=== PATIENT | female | born 1985 | race African-American/Black ===

== ENCOUNTER 2017-02-20 00:29 | Emergency (ER) | payer MEDICAID ==
[~2017-02-20] VITALS: Ht 160 cm; Wt 81.1 kg
[~2017-02-20 00:29] MED LIST: MIGRAINE MEDICATION
[2017-02-20 00:31] VITALS: BP 107/73
[2017-02-20] MEDS ORDERED: DIPHENHYDRAMINE 25 MG CAPSULE ONE (00:58)
[2017-02-20] MEDS ORDERED: PROPARACAINE OPHTH 0.5%, 15ML ONE (00:59)
[2017-02-20] MEDS ORDERED: FLUORESCEIN OPHTHALMIC 1 MG STRIP ONE (00:59)
[2017-02-20] MEDS ORDERED: FLUORESCEIN OPHTHALMIC 1 MG STRIP RIGHTEYE ONE (01:00)
[2017-02-20] MEDS ORDERED: DIPHENHYDRAMINE 25 MG CAPSULE PO ONE (01:00)
[2017-02-20] MEDS ORDERED: PROPARACAINE OPHTH 0.5%, 15ML RIGHTEYE ONE (01:00)
== END 2017-02-20 02:02 | disposition home or self-care (01) ==
LOC: ED 01:43
DX: H10.11 Acute atopic conjunctivitis, right eye (principal)
CPT/HCPCS: 99283; Q0163

== ENCOUNTER 2017-05-03 16:28 | Emergency (ER) | payer MEDICAID ==
[~2017-05-03] VITALS: Ht 160 cm; Wt 78.7 kg
[2017-05-03] MEDS ORDERED: AZITHROMYCIN 500 MG TABLET ONE (17:00)
[2017-05-03] MEDS ORDERED: CEFTRIAXONE 250 MG ONE (17:00)
[2017-05-03] MEDS ORDERED: CEFTRIAXONE 250 MG IM ONE (17:00)
[2017-05-03] MEDS ORDERED: AZITHROMYCIN 500 MG TABLET PO ONE (17:00)
[2017-05-03 18:08] VITALS: BP 120/74
== END 2017-05-03 18:38 | disposition home or self-care (01) ==
LOC: ED 17:08
DX: R30.0 Dysuria (principal); Z90.710 Acquired absence of both cervix and uterus
CPT/HCPCS: 81003; 87210; 87491; 87591; 87808; 96372; 99284; J0696

== ENCOUNTER 2018-12-16 22:31 | Emergency (ER) | payer MEDICAID ==
[~2018-12-16] VITALS: Ht 157.5 cm; Wt 70.4 kg
[2018-12-16] MEDS ORDERED: KETOROLAC 30 MG/1 ML IM ONE (23:30)
[2018-12-16] MEDS ORDERED: ONDANSETRON ODT 4 MG PO ONE (23:30)
[2018-12-16] MEDS ORDERED: ONDANSETRON ODT 4 MG ONE (23:34)
[2018-12-16] MEDS ORDERED: diabetic med (23:38)
[2018-12-16] MEDS ORDERED: cholesterol med (23:38)
[2018-12-16] MEDS ORDERED: METF500T17 PO (23:38)
--- NOTE | 2018-12-16 23:39 | NUR ---
PT HAS HAD N/V SINCE YESTERDAY. PT HAVING HEADACHE TOO. PT STATES SHE'S A DIABETIC AND FSBS AT HOME TONIGHT WAS 130. monitors applied, siderails up x2, call light within reach. pt medicated per sep, urine sample taken to lab
[2018-12-16 23:48] LABS: BASOPHILS # (AUTO) 0.06 x10^3/uL (0-0.1); BASOPHILS % (AUTO) 0 % (0-1); EOSINOPHILS # (AUTO) 0.07 x10^3/uL (0-0.4); EOSINOPHILS % (AUTO) 1 % (1-7); LYMPHOCYTES % (AUTO) 22 % (22-44); MD NO; MEAN CORPUSCULAR HEMOGLOBIN 32.3 pg (27.0-34.8); MEAN CORPUSCULAR HGB CONC 34.2 g/dL (32.4-35.8); MEAN CORPUSCULAR VOLUME 94.6 fL (80-100); MEAN PLATELET VOLUME 8.3 fL (7.4-10.4); MONOCYTES # (AUTO) 0.91 x10^3/uL (0.2-0.8); MONOCYTES % (AUTO) 7 % (2-9); NEUTROPHILS % (AUTO) 71 % (42-75); PLATELET COUNT 383 x10^3/uL (130-400); RED BLOOD COUNT 5.01 x10^6/uL (3.82-5.3); RED CELL DISTRIBUTION WIDTH 11.8 % (9.6-15.2)
[2018-12-16 23:58] LABS: ALANINE AMINOTRANSFERASE 22 U/L (12-78); ALBUMIN 4.3 g/dL (3.4-5.0); ANION GAP 9 mmol/L (5-15); CALCIUM 9.3 mg/dL (8.5-10.1); CHLORIDE 106 mmol/L (98-107); CREATININE 0.82 mg/dL (0.55-1.02)
[2018-12-17] LABS: MICROSCOPIC INDICATED
[2018-12-17] LABS: ALKALINE PHOSPHATASE 72 U/L (45-117); BILIRUBIN,TOTAL 0.8 mg/dL (0.2-1.0); TOTAL PROTEIN 8.4 g/dL (6.4-8.2)
[2018-12-17 00:10] LABS: CULTURE INDICATED? YES
[2018-12-17] MEDS ORDERED: FENTANYL PF 100 MCG/2ML IV ONE (00:30)
--- NOTE | 2018-12-17 01:02 | NUR ---
PT RESTING ON GURNEY, PROVIDED PT WITH MORE WARM BLANKETS, MONITORS IN PLACE, CALL LIGHT WITHIN REACH, DENIES FURTHER NEEDS
--- NOTE | 2018-12-17 01:04 | NUR ---
PT TO CT
[2018-12-17] MEDS ORDERED: OMNIPAQUE 350 MG/ML, 100ML BOTTLE ONE (01:13)
[2018-12-17 02:24] VITALS: BP 110/55
== END 2018-12-17 02:29 | disposition home or self-care (01) ==
LOC: ED 23:16
DX: K51.90 Ulcerative colitis, unspecified, without complications (principal); R10.32 Left lower quadrant pain; G43.909 Migraine, unspecified, not intractable, without status migrainosus; E11.9 Type 2 diabetes mellitus without complications; Z90.710 Acquired absence of both cervix and uterus
CPT/HCPCS: 36415; 74177; 80053; 81001; 83690; 85025; 87086; 99284; Q0162; Q9967

== ENCOUNTER 2019-01-16 01:48 | Emergency (ER) | payer MEDICAID, MEDICARE ==
[~2019-01-16] VITALS: Ht 160 cm; Wt 71.4 kg
[~2019-01-16 01:48] MED LIST changes: +METF500T17 PO; +cholesterol med; +diabetic med
[2019-01-16 01:53] VITALS: BP 99/60
[2019-01-16] MEDS ORDERED: AZITHROMYCIN 250 MG TABLET ONE (02:13)
[2019-01-16] MEDS ORDERED: LIDOCAINE-MPF 1%, 2ML ONE (02:13)
[2019-01-16] MEDS ORDERED: CEFTRIAXONE 250 MG ONE (02:13)
[2019-01-16] MEDS ORDERED: AZITHROMYCIN 500 MG TABLET PO ONE (02:30)
[2019-01-16] MEDS ORDERED: CEFTRIAXONE 250 MG IM ONE (02:30)
== END 2019-01-16 02:50 | disposition home or self-care (01) ==
LOC: ED 02:22
DX: A64 Unspecified sexually transmitted disease (principal); E11.9 Type 2 diabetes mellitus without complications; Z90.710 Acquired absence of both cervix and uterus
CPT/HCPCS: 96372; 99283; J0696

== ENCOUNTER 2019-01-21 10:19 | Emergency (ER) | payer MEDICARE, MEDICAID ==
[~2019-01-21] VITALS: Ht 160 cm; Wt 71.0 kg
[2019-01-21 11:47] VITALS: BP 98/43
== END 2019-01-21 13:06 | disposition home or self-care (01) ==
LOC: ED 11:33
DX: N34.1 Nonspecific urethritis (principal); R30.0 Dysuria; Z90.710 Acquired absence of both cervix and uterus; Z11.59 Encounter for screening for other viral diseases
CPT/HCPCS: 81003; 87210; 87491; 87591; 87808; 99283

== ENCOUNTER 2019-08-09 10:16 | Emergency (ER) | payer MEDICARE, MEDICAID ==
[~2019-08-09] VITALS: Ht 160 cm; Wt 75.4 kg
[~2019-08-09 10:16] MED LIST changes: +TRADJENTA
--- NOTE | 2019-08-09 10:41 | NUR ---
PT TO ROOM FROM [facility]. GIVEN INSTRUCTIONS TO PROVIDE CLEAN CATCH UA, SUPPLIES PROVIDED, PT TO BATHROOM AT THIS TIME.
[2019-08-09] MEDS ORDERED: HYDROcodone/APAP 5/325 TABLET ONE (10:56)
[2019-08-09] MEDS ORDERED: HYDROcodone/APAP 5/325 TABLET PO ONE ×2 (11:00)
[2019-08-09 11:12] LABS: MICROSCOPIC NOT IND
[2019-08-09 11:16] LABS: CULTURE INDICATED? NO
[2019-08-09 11:45] LABS: BASOPHILS # (AUTO) 0.07 x10^3/uL (0-0.1); BASOPHILS % (AUTO) 1 % (0-1); EOSINOPHILS # (AUTO) 0.19 x10^3/uL (0-0.4); EOSINOPHILS % (AUTO) 2 % (1-7); LYMPHOCYTES # (AUTO) 1.91 x10^3/uL (1-3.4); LYMPHOCYTES % (AUTO) 22 % (22-44); MD NO; MEAN CORPUSCULAR HEMOGLOBIN 32.2 pg (27.0-34.8); MEAN CORPUSCULAR HGB CONC 34.6 g/dL (32.4-35.8); MEAN PLATELET VOLUME 8.5 fL (7.4-10.4); MONOCYTES # (AUTO) 0.56 x10^3/uL (0.2-0.8); MONOCYTES % (AUTO) 6 % (2-9); NEUTROPHILS % (AUTO) 69 % (42-75); PLATELET COUNT 306 x10^3/uL (130-400); RED BLOOD COUNT 4.65 x10^6/uL (3.82-5.3); RED CELL DISTRIBUTION WIDTH 11.7 % (9.6-15.2)
[2019-08-09 11:57] LABS: ALBUMIN 3.5 g/dL (3.4-5.0); ANION GAP 6 mmol/L (5-15); CALCIUM 8.1 mg/dL (8.5-10.1); CHLORIDE 105 mmol/L (98-107)
[2019-08-09 11:58] LABS: CREATININE 0.79 mg/dL (0.55-1.02)
[2019-08-09 12:19] LABS: ACETONE, SERUM Negative (Negative)
--- NOTE | 2019-08-09 12:22 | NUR ---
CT paged to collect pt.
--- NOTE | 2019-08-09 12:33 | NUR ---
pt back from CT
[2019-08-09 13:31] VITALS: BP 105/68
--- NOTE | 2019-08-09 13:32 | NUR ---
pt reports flank pain improved s/p norco. pt given dc instructions and script, educated regarding dc rx for robaxan. pt instructed not to drive today d/t med given. pt amb to dc desk with steady gait accompanied by spouse who is to drive home. nadn at dc.
== END 2019-08-09 13:33 | disposition home or self-care (01) ==
LOC: ED 13:00
DX: S39.012A Strain of muscle, fascia and tendon of lower back, initial encounter (principal); R30.0 Dysuria; E11.9 Type 2 diabetes mellitus without complications; Z90.710 Acquired absence of both cervix and uterus; Z88.8 Allergy status to other drugs, medicaments and biological substances; Z98.51 Tubal ligation status; X58.XXXA Exposure to other specified factors, initial encounter; Y93.89 Activity, other specified; Y92.89 Other specified places as the place of occurrence of the external cause; Y99.8 Other external cause status
CPT/HCPCS: 36415; 74176; 80048; 81003; 82010; 82040; 85025; 99284

== ENCOUNTER 2020-01-05 14:47 | Emergency (ER) | payer MEDICARE, MEDICAID ==
[~2020-01-05] VITALS: Ht 160 cm; Wt 73.1 kg
--- NOTE | 2020-01-05 15:05 | NUR ---
PT C/O N/V/D WITH PARKER AND ABDOMINAL CRAMPING FOR ONE WEEK S/P EATING UNCOOKED SEAFOOD VIA OVEN THAT WAS NOT WORKING. PT HAS HX OF ULCERATIVE COLITIS. NO DARK STOOLS OR BRB SEEN IN STOOL PER PT.
[2020-01-05] MEDS ORDERED: PROMETHAZINE 25 MG/ML, 1ML ONE (15:14)
--- NOTE | 2020-01-05 15:15 | NUR ---
PT REFUSED PHENERGAN SHOT. ORAL ZOFRAN TO BE ORDERED PER DR. COLES.
[2020-01-05] MEDS ORDERED: ONDANSETRON ODT 8 MG ONE (15:17)
[2020-01-05 15:21] LABS: BASOPHILS # (AUTO) 0.04 x10^3/uL (0-0.1); BASOPHILS % (AUTO) 1 % (0-1); EOSINOPHILS % (AUTO) 2 % (1-7); LYMPHOCYTES % (AUTO) 25 % (22-44); MD NO; MEAN CORPUSCULAR HEMOGLOBIN 31.9 pg (27.0-34.8); MEAN CORPUSCULAR HGB CONC 34.6 g/dL (32.4-35.8); MEAN CORPUSCULAR VOLUME 92.1 fL (80-100); MEAN PLATELET VOLUME 8.3 fL (7.4-10.4); MONOCYTES # (AUTO) 0.61 x10^3/uL (0.2-0.8); MONOCYTES % (AUTO) 7 % (2-9); NEUTROPHILS # (AUTO) 6.22 x10^3/uL (1.8-6.8); NEUTROPHILS % (AUTO) 66 % (42-75); PLATELET COUNT 324 x10^3/uL (130-400); RED BLOOD COUNT 4.66 x10^6/uL (3.82-5.3); RED CELL DISTRIBUTION WIDTH 11.4 % (9.6-15.2)
[2020-01-05] MEDS ORDERED: PROMETHAZINE 25 MG/ML, 1ML IM ONE (15:30)
[2020-01-05] MEDS ORDERED: ONDANSETRON ODT 8 MG PO ONE (15:30)
[2020-01-05 15:40] LABS: ALANINE AMINOTRANSFERASE 34 U/L (12-78); ALBUMIN 3.6 g/dL (3.4-5.0); ANION GAP 10 mmol/L (5-15); CALCIUM 8.8 mg/dL (8.5-10.1); CHLORIDE 107 mmol/L (98-107); CREATININE 0.65 mg/dL (0.55-1.02)
[2020-01-05 15:42] LABS: ALKALINE PHOSPHATASE 85 U/L (45-117); BILIRUBIN,TOTAL 0.6 mg/dL (0.2-1.0); TOTAL PROTEIN 7.7 g/dL (6.4-8.2)
[2020-01-05 16:05] VITALS: BP 108/56
--- NOTE | 2020-01-05 16:05 | NUR ---
PT REPORTS NAUSEA IS BETTER. CHART UP FOR MD RECHECK. VSS.
[2020-01-05] MEDS ORDERED: METF500T17 PO (16:12)
== END 2020-01-05 16:32 | disposition home or self-care (01) ==
LOC: ED 16:05
DX: R11.2 Nausea with vomiting, unspecified (principal); R19.7 Diarrhea, unspecified; R10.84 Generalized abdominal pain; E11.9 Type 2 diabetes mellitus without complications
CPT/HCPCS: 36415; 80053; 82962; 83690; 85025; 99283; Q0162

== ENCOUNTER 2020-01-24 18:02 | Emergency (ER) | payer MEDICAID, MEDICARE ==
[~2020-01-24] VITALS: Ht 160 cm; Wt 72.7 kg
[2020-01-24] MEDS ORDERED: ONDANSETRON ODT 4 MG ONE (18:08)
[2020-01-24] MEDS ORDERED: ONDANSETRON 2MG/ML, 2ML IVPush ONE (18:30)
[2020-01-24] MEDS ORDERED: ONDANSETRON ODT 4 MG PO ONE (18:30)
[2020-01-24] MEDS ORDERED: PLEASE ENTER HEIGHT AND WEIGHT MC SCH (18:30)
[2020-01-24] MEDS ORDERED: SODIUM CHLORIDE 0.9% 1,000ML IVBOLUS ONE (18:30)
[2020-01-24] MEDS ORDERED: SODIUM CHLORIDE FLUSH 10ML SYR IVF ONE (18:30)
[2020-01-24 18:37] LABS: ALBUMIN 4.1 g/dL (3.4-5.0); ANION GAP 9 mmol/L (5-15); CALCIUM 9.2 mg/dL (8.5-10.1); CHLORIDE 110 mmol/L (98-107)
[2020-01-24 18:40] LABS: ALANINE AMINOTRANSFERASE 29 U/L (12-78); ALKALINE PHOSPHATASE 76 U/L (45-117); CREATININE 0.84 mg/dL (0.55-1.02); TOTAL PROTEIN 8.6 g/dL (6.4-8.2)
[2020-01-24 18:51] LABS: BASOPHILS # (AUTO) 0.05 x10^3/uL (0-0.1); BASOPHILS % (AUTO) 1 % (0-1); EOSINOPHILS # (AUTO) 0.03 x10^3/uL (0-0.4); EOSINOPHILS % (AUTO) 0 % (1-7); LYMPHOCYTES # (AUTO) 2.22 x10^3/uL (1-3.4); LYMPHOCYTES % (AUTO) 21 % (22-44); MD NO; MEAN CORPUSCULAR HEMOGLOBIN 31.7 pg (27.0-34.8); MEAN CORPUSCULAR HGB CONC 33.9 g/dL (32.4-35.8); MEAN CORPUSCULAR VOLUME 93.5 fL (80-100); MEAN PLATELET VOLUME 8.8 fL (7.4-10.4); MONOCYTES # (AUTO) 0.66 x10^3/uL (0.2-0.8); MONOCYTES % (AUTO) 6 % (2-9); NEUTROPHILS # (AUTO) 7.47 x10^3/uL (1.8-6.8); NEUTROPHILS % (AUTO) 72 % (42-75); PLATELET COUNT 396 x10^3/uL (130-400); RED CELL DISTRIBUTION WIDTH 11.7 % (9.6-15.2)
--- NOTE | 2020-01-24 19:36 | NUR ---
PT TO ROOM FROM LOBBY
--- NOTE | 2020-01-24 21:19 | NUR ---
URINE SAMPLE PROVIDED BY PT. LABELED AND SENT TOLAB
[2020-01-24 21:51] LABS: MICROSCOPIC INDICATED
[2020-01-24] MEDS ORDERED: METOCLOPRAMIDE 5 MG/ML, 2ML IVPush ONE (22:00)
--- NOTE | 2020-01-24 22:07 | NUR ---
UA BACK. CHART UP FOR RECHECK. PT DENIES ANY NEEDS AT THIS TIME. PT UPDATED ON PLAN. DENIES ANY QUESTIONS. LYING ON GURNEY TALKING ON PHONE. WILL CONTINUE TO MONITOR.
[2020-01-24 22:08] VITALS: BP 112/55
--- NOTE | 2020-01-24 22:43 | NUR ---
Patient/Caregiver given discharge instructions and they have confirmed that they understand the instructions. Patient ambulatory with steady gait.
== END 2020-01-24 22:45 | disposition home or self-care (01) ==
LOC: ED 22:05
DX: K52.9 Noninfective gastroenteritis and colitis, unspecified (principal); R11.2 Nausea with vomiting, unspecified; N30.00 Acute cystitis without hematuria; R00.0 Tachycardia, unspecified; E11.9 Type 2 diabetes mellitus without complications
CPT/HCPCS: 36415; 80053; 81001; 83690; 84703; 85025; 87086; 96360; 99283; J7030; Q0162; 87147

== ENCOUNTER 2020-06-27 00:01 | Emergency (ER) | payer MEDICARE, MEDICAID ==
[~2020-06-27] VITALS: Ht 160 cm; Wt 76.0 kg
[2020-06-27 01:09] LABS: MEAN CORPUSCULAR HEMOGLOBIN 31.9 pg (27.0-34.8); MEAN CORPUSCULAR HGB CONC 34.8 g/dL (32.4-35.8); MEAN PLATELET VOLUME 8.1 fL (7.4-10.4); PLATELET COUNT 350 x10^3/uL (130-400); RED BLOOD COUNT 4.63 x10^6/uL (3.82-5.3); RED CELL DISTRIBUTION WIDTH 11.8 % (9.6-15.2)
[2020-06-27 01:18] LABS: CALCIUM 8.6 mg/dL (8.5-10.1); CREATININE 0.65 mg/dL (0.55-1.02)
[2020-06-27 01:22] LABS: ANION GAP 4 mmol/L (5-15); CHLORIDE 105 mmol/L (98-107)
[2020-06-27 01:46] LABS: MD YES
[2020-06-27 01:47] LABS: ANISOCYTOSIS 1+; EOS#(MANUAL) 0.36 x10^3/uL (0.0-0.4); EOS% (MANUAL) 3 % (1-7); LYMPH#(MANUAL) 3.24 x10^3/uL (1-3.4); LYMPHS% (MANUAL) 27 % (22-44); MONOS#(MANUAL) 0.48 x10^3/uL (0.3-2.7); MONOS% (MANUAL) 4 % (2-9); MYELOCYTES# (MANUAL) 0.12 x10^3/uL (0-0); MYELOCYTES% (MANUAL) 1 % (0-0); SEGS% (MANUAL) 65 % (42-75)
[2020-06-27 01:48] LABS: <PLATELET ESTIMATE> ADEQUATE; <PLT MORPHOLOGY> NORMAL PLT MORPH; HYPOCHROMIA 1+; LARGE PLATELETS 1+
[2020-06-27] MEDS ORDERED: ONDANSETRON 2MG/ML, 2ML ONE (02:21)
[2020-06-27] MEDS ORDERED: KETOROLAC 30 MG/1 ML ONE (02:21)
[2020-06-27] MEDS ORDERED: DIAZEPAM 5 MG/ML, 2ML ONE (02:21)
[2020-06-27] MEDS ORDERED: DIPHENHYDRAMINE 50 MG/ML, 1ML ONE (02:21)
[2020-06-27] MEDS ORDERED: DIPHENHYDRAMINE 50 MG/ML, 1ML IVPush ONE (02:30)
[2020-06-27] MEDS ORDERED: SODIUM CHLORIDE FLUSH 10ML SYR IVF ONE (02:30)
[2020-06-27] MEDS ORDERED: DIAZEPAM 5 MG/ML, 2ML IV ONE (02:30)
[2020-06-27] MEDS ORDERED: KETOROLAC 30 MG/1 ML IVPush ONE (02:30)
[2020-06-27] MEDS ORDERED: ONDANSETRON 2MG/ML, 2ML IVPush ONE (02:30)
[2020-06-27] MEDS ORDERED: SODIUM CHLORIDE 0.9% 1,000ML IVBOLUS ONE (02:30)
[2020-06-27 04:45] VITALS: BP 97/49
== END 2020-06-27 04:47 | disposition home or self-care (01) ==
LOC: ED 04:21
DX: G43.009 Migraine without aura, not intractable, without status migrainosus (principal); E11.9 Type 2 diabetes mellitus without complications; Z90.710 Acquired absence of both cervix and uterus
CPT/HCPCS: 36415; 80048; 84703; 85025; 96361; 96374; 96375; 99284; J1200; J1885; J2405; J3360; J7030

== ENCOUNTER 2020-07-15 00:03 | Emergency (ER) | payer MEDICARE, MEDICAID ==
[~2020-07-15] VITALS: Ht 160 cm; Wt 76.5 kg
[2020-07-15] MEDS ORDERED: ACETAMINOPHEN 500 MG TABLET PO ONE (00:30)
[2020-07-15] MEDS ORDERED: PROCHLORPERAZINE 5 MG/ML, 2ML IVPush ONE (00:30)
[2020-07-15] MEDS ORDERED: DIPHENHYDRAMINE 25 MG CAPSULE PO ONE (00:30)
[2020-07-15] MEDS ORDERED: KETOROLAC 30 MG/1 ML IVPush ONE (00:30)
[2020-07-15] MEDS ORDERED: ACETAMINOPHEN 500 MG TABLET ONE (00:46)
[2020-07-15] MEDS ORDERED: PROCHLORPERAZINE 5 MG/ML, 2ML ONE (00:46)
[2020-07-15] MEDS ORDERED: KETOROLAC 30 MG/1 ML ONE (00:46)
[2020-07-15] MEDS ORDERED: DIPHENHYDRAMINE 25 MG CAPSULE ONE (00:46)
[2020-07-15] MEDS ORDERED: ZOLM5TAB9 PO (01:21)
--- NOTE | 2020-07-15 02:08 | NUR ---
PATIENT RESTING ON BED WITH EYES CLOSED, WAKES EASILY, NAD. REPORTS THAT HER HEADACHE IS GONE, WILL CONTINUE TO MONITOR.
[2020-07-15 02:57] VITALS: BP 114/50
== END 2020-07-15 02:59 | disposition home or self-care (01) ==
LOC: ED 00:25
DX: G43.909 Migraine, unspecified, not intractable, without status migrainosus (principal); R11.2 Nausea with vomiting, unspecified; E11.9 Type 2 diabetes mellitus without complications; Z90.710 Acquired absence of both cervix and uterus
CPT/HCPCS: 96374; 96375; 99284; J0780; J1885; Q0163